=== PATIENT | female | born 1975 ===

== ENCOUNTER 2022-11-24 19:51 | Emergency (ER) | payer MEDICAID, SELFPAY ==
[2022-11-24 20:00] VITALS: BP 132/88; PULSE 86; RESP 18; TEMP 36.8; O2SAT 95; BMI 26.6
--- NOTE | 2022-11-24 20:00 | ED_ITS ---
HPI - Dental/Oral General Chief complaint: Dental/Oral Stated complaint: Toothache Time Seen by Provider: 11/24/22 20:01 Source: patient Mode of arrival: ambulatory Limitations: no limitations History of Present Illness HPI Narrative: 47 year old female here with right lower dental pain which began at 02:00 o'clock however the patient broke her tooth. Took ibuprofen prior to arrival with continued symptoms. Related Data Previous Rx's Medication Instructions Recorded amoxicillin 500 mg capsule 500 mg PO BID #14 caps 11/24/22 Allergies Allergy/AdvReac Type Severity Reaction Status Date / Time No Known Allergies Allergy Unverified 03/29/20 19:45 [No Known Allergies*] Review of Systems Review of Systems: Yes all other systems are reviewed and are negative Constitutional: Constitutional: Reports no additional constitutional complaints, Denies body ache(s), Denies chills, Denies fever(s), Denies headache(s) and Denies weakness Eyes: Eyes: Reports no additional eye complaints and Denies change in vision ENT: Reports system reviewed and no additional complaints, except as documented, Reports dental pain, Denies dizziness, Denies headache(s), Denies nasal congestion, Denies nasal discharge and Denies neck pain Cardiovascular: Cardiovascular: Reports no additional cardiovascular complaints, Denies chest pain, Denies leg edema and Denies dyspnea Respiratory: Respiratory: Reports no additional respiratory complaints, Denies cough and Denies dyspnea Gastrointestinal: Gastrointestinal: Reports no additional gastrointestinal complaints, Denies abdominal pain, Denies diarrhea, Denies nausea and Denies vomiting Genitourinary: Genitourinary: Reports no additional female genitourinary complaints and Denies urinary incontinence Musculoskeletal: Musculoskeletal: Reports no additional musculoskeletal complaints, Denies back pain, Denies arthralgias, Denies joint swelling, Denies neck pain, Denies numbness and Denies tingling Integumentary/Breasts: Skin/Breast: Reports system reviewed and no additional complaints, except as docu and Denies rash Neurologic: Reports system reviewed and no additional complaints, except as documented, Denies Abnormal speech present, Denies dizziness, Denies headache(s), Denies numbness, Denies tingling and Denies weakness PMFSH Past Medical History Attestation statement: The following information was validated with the patient. Source: old records reviewed and nursing notes reviewed Physical Exam Vital Signs: Vital Signs: Last Vital Signs Temp 98.2 F 11/24/22 20:00 Pulse 86 11/24/22 20:00 Resp 18 11/24/22 20:00 BP 132/88 11/24/22 20:00 Pulse Ox 95 11/24/22 20:00 O2 Del Method Room Air 11/24/22 20:00 BMI result Body Mass Index 26.6 Const: General: cooperative, healthy appearing, comfortable and no acute distress Orientation/consciousness: patient oriented x3 Limitations: no limitations HEENT: Other: No trismus Head: Yes normal to inspection Ears: hearing grossly normal bilaterally General nose exam: Normal external nose present Face and sinus: Yes normal facial exam Mouth: Normal oral and palatal mucosa present Teeth image: 1. There is dental caries. There is a broken tooth with exposed enamel and nerve root. Throat: Yes posterior oropharynx normal Eyes: General: appearance normal, both eyes and all related structures Pupils: Equal, round and reactive pupils present Neck: Neck: Yes normal visual inspection Chest: Chest palpation & inspection: normal inspection of the chest Resp: Effort & Inspection: normal respiratory effort Auscultation: clear to auscultation bilaterally Cardio: Rate: regular rate Rhythm: regular rhythm Peripheral pulses: Peripheral pulses 2+ throughout GI: Inspection: Yes normal to inspection Palpation (GI): Soft to palpation and nontender Auscultation: normal bowel sounds Back/Spine/Pelvis: Thoracic/Lumbar Spine: thoracic and lumbar spine normal to inspection Skin: General skin exam: no rashes or lesions noted Neuro: General: patient oriented x3, no focal motor deficits and normal sensation to monofilament Cranial nerves: Yes Equal, round and reactive pupils present Cognition (Neuro): normal cognition Speech: No Abnormal speech present Gait exam (Neuro): Normal gait present Motor exam (neuro): 5/5 motor strength present throughout Extrem: General: Yes normal to inspection Course Course Course Narrative: This is a rapid medical exam. Deferred additional HPI, ROS, PE to primary provider. Medications Administered Discontinued Medications Generic Name Dose Route Start Last Admin Trade Name Freq PRN Reason Stop Dose Admin Ketorolac Tromethamine 30 mg 11/24/22 20:01 11/24/22 20:03 Ketorolac Tromethamine 30 Mg/Ml Vial IM 11/24/22 20:02 30 mg ONCE ONE Administration Medical Decision Making Medical Decision Making MDM Narrative: 47-year-old female here with right lower dental pain after she broke a tooth at 14:00 today. Patient will be given Toradol IM for pain control Will send her home with antibiotic, recommendations to continue Motrin/Tylenol a s needed and follow-up with dental clinic patient Differential Diagnosis Differential Diagnoses: The differential diagnosis associated with the presentation includes Dental caries, dental pain No evidence of dental abscess or Chaitanya's angina Discharge Plan Discharge Clinical Impression: Dental caries Patient Disposition: Home, Self-Care Instructions: Toothache (ED) Additional Instructions: Call your dentist tomorrow to follow-up Prescriptions: New amoxicillin 500 mg capsule 500 mg PO BID Qty: 14 0RF Stand Alone Forms: Work/School Release
[2022-11-24] MEDS: Ketorolac Tromethamine 30 MG/ML VIAL IM (20:03)
== END 2022-11-24 20:15 | disposition home or self-care (01) ==
LOC: HO.ED 20:15
PROVIDERS: Emergency Provider Emergency Medicine
DX: K02.9 Dental caries, unspecified (principal); Z79.899 Other long term (current) drug therapy
CPT/HCPCS: 96372; 99282; 99284; J1885